=== PATIENT | female | born 1950 | race Caucasian/White ===

== ENCOUNTER 2021-02-20 07:21 | Emergency (ER) | payer MEDICARE, OTHER ==
[2021-02-20 07:44] LABS: BASOPHIL 1.7 % (0-2); EOSINOPHIL 2.6 % (0-7); HGB 14.2 g/dl (12.5-16.0); LYMPHOCYTE 45.3 % (15-48); MCH 30.3 pg (25.0-31.0); MCV 91.9 fL (78.0-100.0); NEUTROPHIL 38.1 % (41-80); NRBC 0; PLT 123 K/uL (150-400); RBC 4.68 M/uL (4.20-5.40); RDW 12.6 % (11.5-14.0); WBC 3.5 K/uL (4.0-10.5)
[2021-02-20 07:56] LABS: BUN/CREAT RATIO (CALC) 30.6 RATIO; CREATININE 0.62 mg/dL (0.51-0.95); POTASSIUM 4.2 mmol/L (3.5-5.1)
== END 2021-02-20 08:37 | disposition home or self-care (01) ==
LOC: FER 07:21
PROVIDERS: Emergency Medicine
DX: R55 Syncope and collapse (principal); I10 Essential (primary) hypertension; J44.9 Chronic obstructive pulmonary disease, unspecified; Z88.2 Allergy status to sulfonamides
CPT/HCPCS: 36415; 78452; 80048; 84484; 85025; 93005; 93017; A9500; J2785